=== PATIENT | female | born 2000 | race Two or more races ===

== ENCOUNTER 2021-06-17 09:33 | Emergency (ER) | payer OTHER ==
[~2021-06-17] VITALS: Ht 154.9 cm; Wt 68.0 kg
== END 2021-06-17 14:09 | disposition home or self-care (01) ==
LOC: EMR PED 09:33 → ER 09:33 → EMR PED 13:03
DX: A49.3 Mycoplasma infection, unspecified site (principal); Z03.818 Encounter for observation for suspected exposure to other biological agents ruled out